=== PATIENT | female | born 2000 | race Caucasian/White ===

== ENCOUNTER 2024-04-05 14:40 | Emergency (ER) | payer MEDICAID ==
[~2024-04-05] VITALS: Ht 160 cm; Wt 83.2 kg
[2024-04-05] MEDS: ondansetron 4mg rapidly disintigrating tab PO ONE (16:40)
[2024-04-05 16:54] VITALS: BP 122/71; PULSE 95; RESP 16; TEMP 98.6; O2SAT 97
== END 2024-04-05 16:50 | disposition home or self-care (01) ==
LOC: ER 14:40
DX: R55 Syncope and collapse (principal); R42 Dizziness and giddiness; R11.10 Vomiting, unspecified
CPT/HCPCS: 93005; 99284